=== PATIENT | female | born 1975 | race Caucasian/White ===

== ENCOUNTER 2022-02-13 08:52 | Emergency (ER) | payer OTHER ==
[~2022-02-13] VITALS: Ht 154.9 cm; Wt 81.6 kg
[2022-02-13 08:58] VITALS: BP 151/97
--- NOTE | 2022-02-13 09:13 | NUR ---
AMBULATED TO BED 3
--- NOTE | 2022-02-13 09:22 | NUR ---
SIN AT BEDSIDE FOR EVALUATION
[2022-02-13] MEDS ORDERED: CYCLOBENZAPRINE 10 MG TAB PO ONE (09:30)
[2022-02-13] MEDS ORDERED: LIDOCAINE 5% 1 EA PATCH TP SCH (09:30)
[2022-02-13] MEDS ORDERED: KETOROLAC 30 MG/ML VIAL IM ONE (09:30)
--- NOTE | 2022-02-13 09:32 | NUR ---
46YO FEMALE PT C/O SHARP L FLANK XYESTERDAY. PT STATES SUDDEN ONSET W/ PAIN AT MOST ON MOVEMENT. STATES MILD RELIEF AFTER TAKING BACLOFEN AND NORCO. L SIDED DEFICIT NOTED - STATES DUE TO STROKE . PRESENTS W/O PHYSICAL INJURY. BACK NON TENDER TO TOUCH. DENIES RECENT INJURY , DYSURIA, N/V/D ,FEVER , CHILLS, CHEST PAIN OR SOB. PT AAOX4, RESPIRATIONS EVEN AND UNLABORED. HOB POSITIONED PER COMFORT. BED AT LOWEST POSITION. HX: STROKE, HTN , DIABETES NKA
--- NOTE | 2022-02-13 09:35 | NUR ---
US AT BEDSIDE
--- NOTE | 2022-02-13 10:00 | NUR ---
PT AMBULATED TO RESTROOM
--- NOTE | 2022-02-13 10:42 | NUR ---
blood drawn , walked and handed to metallurgical lab technician
[2022-02-13 11:03] LABS: BASOPHILS # (AUTO) 0.1 K/uL (0.00-0.22); BASOPHILS % (AUTO) 0.4 % (0.0-2.0); EOSINOPHILS # (AUTO) 0.1 K/uL (0-0.4); HEMATOCRIT 39.5 % (36-48); HEMOGLOBIN 13.1 g/dL (12.0-16.0); LYMPHOCYTES # (AUTO) 2.3 K/uL (2.5-16.5); LYMPHOCYTES % (AUTO) 16.8 % (20.5-51.1); MEAN CORPUSCULAR HEMOGLOBIN 29 pg (27-31); MEAN CORPUSCULAR HGB CONC 33 g/dL (33-37); MEAN CORPUSCULAR VOLUME 87.5 fL (80-94); MONOCYTES # (AUTO) 0.9 K/uL (0.8-1.0); MONOCYTES % (AUTO) 6.4 % (1.7-9.3); NEUTROPHILS # (AUTO) 10.3 K/uL (1.8-7.7); NEUTROPHILS % (AUTO) 75.4 % (42.2-75.2); PLATELET COUNT (AUTO) 403 K/uL (140-450); RED BLOOD CELL COUNT(AUTO) 4.51 MIL/uL (4.20-5.40); RED CELL DISTRIBUTION WIDTH 13.5 % (11.6-13.7); WHITE BLOOD COUNT (AUTO) 13.7 K/uL (4.8-10.8)
[2022-02-13 11:24] LABS: ALBUMIN 3.3 g/dL (3.4-5.0); ANION GAP 13.3 (8-16); POTASSIUM 4.3 mmol/L (3.5-5.1); TOTAL BILIRUBIN 0.4 mg/dL (0.0-1.0)
[2022-02-13 11:24] LABS: APPEARANCE,URINE SL CLOUDY (CLEAR); BILIRUBIN,URINE NEGATIVE (NEGATIVE); BLOOD, URINE NEGATIVE (NEGATIVE); COLOR,URINE YELLOW (YELLOW); LEUKOCYTE ESTERASE ,URINE TRACE (NEGATIVE); NITRITE, URINE POSITIVE (NEGATIVE); UGLUCOSE NEGATIVE (NEGATIVE)
[2022-02-13] MEDS ORDERED: MORPHINE SULFATE 10 MG/ML VIAL IM ONE (11:35)
[2022-02-13 11:47] LABS: RBC,URINE 0-5 /HPF (0-5)
[2022-02-13 11:48] LABS: WBC,URINE 0-5 /HPF (0-5)
[2022-02-13] MEDS ORDERED: cephALEXin 500 MG CAP PO ONE (12:10)
[2022-02-13] MEDS ORDERED: ACET-10509 PO (12:16)
[2022-02-13] MEDS ORDERED: CEPH-588 PO (12:16)
[2022-02-13 12:49] VITALS: BP 145/79
--- NOTE | 2022-02-13 12:49 | NUR ---
Patient discharged with v/s stable. Written and verbal after care instructions FORPYLENEPHRITIS given and explained. Patient alert, oriented and verbalized understanding of instructions. Ambulatory with steady gait. All questions addressed prior to discharge. ID band removed. Patient advised to follow up with PMD. Rx of KELFEX AND TYELNOL given.Opportunity to ask questions provided and answered.
--- NOTE | 2022-02-13 12:59 | NUR ---
Chart checked and completed. The patient's care was reviewed and supervised by Keisha Castillo RN.
== END 2022-02-13 12:49 | disposition home or self-care (01) ==
LOC: MED 08:52
DX: N10 Acute pyelonephritis (principal); Z79.899 Other long term (current) drug therapy
CPT/HCPCS: 36415; 76770; 80053; 81001; 81025; 83690; 85025; 87086; 96372; 99285; J1885; J2270; Q0092; 81002